=== PATIENT | female | born 1960 | race Caucasian/White ===

== ENCOUNTER 2022-02-17 19:34 | Inpatient (IN) | payer OTHER ==
[~2022-02-17] VITALS: Ht 165.1 cm; Wt 77.1 kg
[~2022-02-17 19:34] MED LIST: Augmentin 875-1 EACH PO; Bactrim Ds Tab1 EACH PO; Bupropion Xl150 MG PO; DESO.05TCA TOP; ESCI10 PO; GENT.3OPO TOP; Hydrocodone-Ap1 EA23 PO; IBUP800; OXYACE5T PO; PRED1SU BOTHEYES
[2022-02-17 22:36] LABS: BASOPHILS ABSOLUTE AUTO 0.09 K/mm3 (0.00-0.23); BASOPHILS PERCENT AUTO 1 % (0-2); EOSINOPHILS ABSOLUTE AUTO 0.03 K/mm3 (0.00-0.68); EOSINOPHILS PERCENT AUTO 0 % (0-6); Hematocrit 40.1 % (33.0-51.0); Hemoglobin 13.3 g/dL (11.5-16.0); IMMATURE GRAN ABSOLUTE AUTO 0.07 K/mm3 (0.00-0.10); IMMATURE GRAN PERCENT AUTO 0 % (0-1); LYMPHOCYTES ABSOLUTE AUTO 2.08 K/mm3 (0.84-5.20); LYMPHOCYTES PERCENT AUTO 13 % (21-46); MONOCYTES ABSOLUTE AUTO 1.26 K/mm3 (0.16-1.47); MONOCYTES PERCENT AUTO 8 % (4-13); Mean Corpuscular HGB 28.9 pg (26.0-34.0); Mean Corpuscular HGB Conc 33.2 g/dL (31.5-36.5); Mean Corpuscular Volume 87 fL (80-100); Mean Platelet Volume 9.6 fL (9.1-12.4); NEUTROPHILS PERCENT AUTO 79 % (41-73); Platelet Count 299 K/mm3 (150-400); RDW Coefficient Variation 14.1 % (11.7-14.2); White Blood Cell Count 16.43 K/mm3 (4.00-11.30)
[2022-02-17 22:53] LABS: Albumin, Blood 3.3 g/dL (3.4-5.0); Albumin/Globulin Ratio 0.9 (0.8-1.8); Bilirubin, Total 0.3 mg/dL (0.1-1.0); Bun/Creatinine Ratio 16.5 (12.0-20.0); Calcium, Blood 8.5 mg/dL (8.5-10.1); Creatinine, Blood 0.97 mg/dL (0.40-1.00); Globulin, Blood 3.7 g/dL (2.2-4.0); Potassium, Blood 3.8 mmol/L (3.5-5.5)
[2022-02-17 23:22] LABS: Influenza A, PCR NEGATIVE (NEGATIVE); Influenza B, PCR NEGATIVE (NEGATIVE); Resp Syncytial Virus, PCR NEGATIVE (NEGATIVE); SARS-Cov-2 (COVID-19) PCR, MMC NEGATIVE (NEGATIVE)
[2022-02-18 04:50] LABS: Hematocrit 39.4 % (33.0-51.0); Mean Corpuscular HGB 28.8 pg (26.0-34.0); Mean Corpuscular Volume 87 fL (80-100); Mean Platelet Volume 9.6 fL (9.1-12.4); Platelet Count 304 K/mm3 (150-400); RDW Coefficient Variation 14.2 % (11.7-14.2); RDW Standard Deviation 45.2 fL (35.1-46.3); Red Blood Cell Count 4.51 M/mm3 (3.80-5.20); White Blood Cell Count 11.63 K/mm3 (4.00-11.30)
--- NOTE | 2022-02-18 05:12 | NUR ---
ASSUMED CARE OF PT AT 2300. PT ARRIVES TO THE FLOOR FROM THE ED AFTER A F[place] IN [place] FRACTURING HER LEFT FEMUR. PT TO HAVE SURGICAL CONSULT THIS MORNING. PT IS A&OX4, ON BED REST AND IS ABLE TO MAKE NEEDS KNOWN. CSM IN ALL EXTREMITIES. PAIN IS CONTROLLED WITH PRN DILAUDID 1MG Q4H. PT HAS BEEN NPO SINCE ARRIVIAL. PT ABLE TO SLEEP 5+ HOURS THIS SHIFT. WILL CONTINUE TO MONITOR AND GIVE REPORT TO DAYSHIFT RN.
[2022-02-18 05:47] LABS: Bun/Creatinine Ratio 15.3 (12.0-20.0); Calcium, Blood 8.7 mg/dL (8.5-10.1); Creatinine, Blood 0.98 mg/dL (0.40-1.00); Potassium, Blood 4.3 mmol/L (3.5-5.5)
--- NOTE | 2022-02-18 08:24 | NUR ---
PATIENT TO DAY SURGERY WITH FRIEDA LOMBARDO, VIA BED.
--- NOTE | 2022-02-18 12:10 | NUR ---
PATIENT RETURNED TO ROOM FROM ICU. VSS ON 2L O2 VIA NC, SATS >92%. LUNGS CLEAR. PATIENT DENIES PAIN. X3 AQUACELS TO LEFT LEG. CALL LIGHT IN REACH.
--- NOTE | 2022-02-18 17:48 | NUR ---
SHIFT SUMMARY POD 0 RODDING OF LEFT FEMUR. X3 AQUACELS IN PLACE, C/D/I. VSS ON RA. PATIENT REPORTS PAIN TO BE MANAGED PER EMAR WITH TYLENOL & 10MG OXYCODONE. WORKED WITH PHYSICAL THERAPY AND TOLERATED WELL, UP TO CHAIR. EATING, DRINKING, & VOIDING WELL. CALL LIGHT IN REACH, WILL REPORT TO ONCOMING RN.
--- NOTE | 2022-02-18 20:45 | NUR ---
CONTACTED ON-CALL PHYSICIAN TO ASK IF TELE ORDER SHOULD BE CONTINUED D/T LACK OF CARDIAC HISTORY AND STABLE VS POST-OP. ORDER OBTAINED TO D/C FLUIDS AND TELEMETRY. PHYSICIAN REQUESTED TO RECEIVE CALL BACK IF ANY CHANGE IN PT'S STATUS.
--- NOTE | 2022-02-19 07:34 | NUR ---
Shift SUmmary NO acute changes overnight. Pt reports constant pain but has improved overnight. Pain level averaging at 3/10. Pain managed with Toradol, Tylenol and Oxycodone. Pt denies nausea and vomiting. Tolerating PO intake. 50ml output on Urasil output with serosang drainage. IV ABX given overnight. Up independent in the bathroom, calls appropriately when needing assistance. Call light within reach. Report given to Shruthi MALAVE.
--- NOTE | 2022-02-19 07:39 | NUR ---
SHIFT SUMMARY POD1 RODDING ON L FEMUR D/T FRACTURE. SURGICAL SITE WITH 3 AQUACEL DRESSING REMAIN CDI. PT DENIES NUMBNESS AND TINGLING SENSATION. AMBULATES 1 SBA IN THE BSC WITH FWW AND GB. VOIDING WITHOUT DIFFICULTY. NOT PASSING FLATUS YET. BT PRESENT. PT REPORTS MODERATE PAIN. PAIN MANAGED WITH TYLENOL, ROXICODONE AND TORADOL. PT REPORTS SOME TIGHT AND SWELLING ON LLE. ICE PACK OFFERED TO RELIEF SWELLING. TOLERATING PO INTAKE. DENIES NAUSEA AND VOMITING. SALINE LOCKED. CALL LIGHT WITHIN REACH. REPORT GIVEN TO GIANCARLO MALAVE.
[2022-02-19] MEDS ORDERED: OXYC5 PO (13:42)
--- NOTE | 2022-02-19 14:28 | NUR ---
DISCHARGE POD 1 LEFT FEMUR RODDING. AQUACELS IN PLACE, C/D/I. PATEINT CLEARED THERAPY, PAIN MANAGED WELL PER EMAR. EATING, DRINKING, & VOIDING WELL. DISCUSSED DISCHARGE INSTRUCTIONS WITH PATIENT, NO QUESTIONS OR CONCERNS VERBALIZED TO THIS RN. SENT SCRIPT & AQUACEL DRESSINGS WITH PATIENT. ESCORTED OUT VIA W/C.
--- NOTE | 2022-02-20 07:49 | NUR ---
02/20/22 0749 Priscilla Correa VERIFICATIONS: EDIT CHART.
== END 2022-02-19 14:00 | disposition home or self-care (01) | DRG 482 ==
LOC: ER 19:34 → SURS 21:04 → ICUE 02-18 11:38 → SURS 02-18 12:16
PROVIDERS: Orthopaedic Surgery; Physician Assistant; ADMIT Internal Medicine
PROC: 0QSC06Z Reposition Left Lower Femur with Intramedullary Internal Fixation Device, Open Approach (ICD-10-PCS; principal; 2022-02-18 11:30)
DX: S72.452A Displaced supracondylar fracture without intracondylar extension of lower end of left femur, initial encounter for closed fracture (principal); W16.112A Fall into natural body of water striking water surface causing other injury, initial encounter; Z79.899 Other long term (current) drug therapy; D72.828 Other elevated white blood cell count; F17.200 Nicotine dependence, unspecified, uncomplicated
CPT/HCPCS: 0241U; 29505; 36415; 73552; 73700; 80048; 80053; 85025; 85027; 94760; 96374-59; 96375-59; 97110; 97116; 97161; 97530; 99285-25; A9270; C1713; J0690; J1100; J1170; J1885; J2250; J2370; J2405; J2704; J2795; J3010

== ENCOUNTER → 2022-04-28 | Outpatient (CLI) | payer OTHER ==
[~2022-04-28] MED LIST changes: +OXYC5 PO
== END | disposition home or self-care (01) ==
LOC: LAB 17:55 → LAB SHORT 17:55
DX: N39.0 Urinary tract infection, site not specified (principal)
CPT/HCPCS: 87077; 87086; 87186

== ENCOUNTER 2022-06-23 09:21 | Emergency (ER) | payer OTHER ==
[~2022-06-23] VITALS: Ht 165.1 cm; Wt 81.7 kg
[2022-06-23] MEDS ORDERED: XARELTO15 M1 PO (11:16)
== END 2022-06-23 13:30 | disposition home or self-care (01) ==
LOC: ER 09:21
DX: M25.562 Pain in left knee (principal); R10.32 Left lower quadrant pain; F17.200 Nicotine dependence, unspecified, uncomplicated
CPT/HCPCS: 93971

== ENCOUNTER 2022-12-08 06:07 | Day surgery (SDC) | payer OTHER ==
[~2022-12-08] VITALS: Ht 165.1 cm; Wt 83.5 kg
[~2022-12-08 06:07] MED LIST changes: +XARELTO15 M1 PO
[2022-12-08] MEDS ORDERED: HYDROCODONE-AC1 EA19 PO (06:55)
[2022-12-08] MEDS ORDERED: GABA300 PO (06:56)
[2022-12-08 09:41] VITALS: BP 128/69
== END 2022-12-08 09:34 | disposition home or self-care (01) ==
LOC: ORSCSDS 06:07
PROVIDERS: Orthopaedic Surgery
PROC: 0QPC04Z Removal of Internal Fixation Device from Left Lower Femur, Open Approach (ICD-10-PCS; principal; 2022-12-08 07:30)
DX: T84.84XA Pain due to internal orthopedic prosthetic devices, implants and grafts, initial encounter (principal); S72.452G Displaced supracondylar fracture without intracondylar extension of lower end of left femur, subsequent encounter for closed fracture with delayed healing; Z86.718 Personal history of other venous thrombosis and embolism; F17.210 Nicotine dependence, cigarettes, uncomplicated
CPT/HCPCS: A9270; J0171; J0690; J1100; J2250; J2370; J2405; J2704; J2795; J3010; J7120